=== PATIENT | female | born 1975 | race Caucasian/White ===

== ENCOUNTER → 2016-05-08 | Outpatient (CLI) | payer MEDICAID ==
[2016-05-08 16:59] LABS: Basophils # (A) 0.1 k/uL (0-0.2); Basophils % (A) 1 %; CH 29.1; CHCM 32.5; Eosinophils # (A) 0.2 k/uL (0-0.7); Eosinophils % (A) 3 %; HDW 2.61; HGB 12.6 gm/dL (11.4-16.0); Luc # (Auto) 0.12; Luc % (Auto) 2; Lymphocytes # (A) 2.6 k/uL (1.0-4.8); Lymphocytes % (A) 32 %; MCH 29.1 pg (25.0-35.0); MCHC 32.3 g/dL (31.0-37.0); Mean Platelet Volume 7.5; Monocytes # (A) 0.6 k/uL (0-1.0); Monocytes % (A) 8 %; Neutrophils # (A) 4.5 k/uL (1.3-7.7); Neutrophils % (A) 55 %; RBC 4.33 m/uL (3.80-5.40); WBC 8.2 k/uL (3.8-10.6); WBC (Perox) 8.66
[2016-05-08 17:26] LABS: Anion Gap 10 mmol/L; Blood Urea Nitrogen 11 mg/dL (7-17); Carbon Dioxide 27 mmol/L (22-30); Chloride 105 mmol/L (98-107); Glucose 99 mg/dL (74-99); Non-African American GFR(MDRD) >60 (>60 ml/min/1.73 sqM); Potassium 4.2 mmol/L (3.5-5.1); Sodium 142 mmol/L (137-145)
== END | disposition home or self-care (01) ==
LOC: LABWHC1 16:24 → MERGE 16:24
PROVIDERS: ATTEND Obstetrics & Gynecology
DX: Z01.812 Encounter for preprocedural laboratory examination (principal); N87.9 Dysplasia of cervix uteri, unspecified; N81.4 Uterovaginal prolapse, unspecified
CPT/HCPCS: 36415; 80051; 82565; 82947; 84520; 85025; 86850; 86900; 86901; 87086

== ENCOUNTER 2016-05-14 05:51 | Observation (INO) | payer MEDICAID ==
[2016-05-03 10:32] VITALS: BMI 38.4
[~2016-05-14 05:51] MED LIST: ceFAZolin 2 GM in SODIUM CHLORIDE 0.9% 100 ML IVPB ONE
[2016-05-14] MEDS ORDERED: LACTATED RINGERS 1,000 ML IV SCH (06:05)
[2016-05-14] MEDS ORDERED: SCOPOLAMINE 1.5MG/72HR PATCH TRANSDERM ONE (06:05)
[2016-05-14] MEDS ORDERED: ONDANSETRON 4 MG/2 ML VIAL IVP ONE (06:05)
[2016-05-14] MEDS ORDERED: DEXAMETHASONE SOD PHOSPHATE 10 MG/ML 1 ML VIAL IV ONE (06:05)
[2016-05-14] MEDS ORDERED: MIDAZOLAM 2 MG/2 ML VIAL IV PRN (06:05)
[2016-05-14] MEDS ORDERED: HYDROmorphone 1 MG/ML 1 ML SYRINGE IVP PRN (06:05)
[2016-05-14] MEDS ORDERED: LIDOCAINE 1% 20 ML VIAL (10MG/ML) FOR IV START SQ ONE (06:25)
[2016-05-14] MEDS ORDERED: MIDAZOLAM 2 MG/2 ML VIAL IVP ONE (07:25)
[2016-05-14] MEDS ORDERED: SUCCINYLCHOLINE CHLORIDE 100 MG/5 ML SYR IV ONE (07:30)
[2016-05-14] MEDS ORDERED: ALBUTEROL INHALER 60 PUFF/8 GM INHALER INHALATION ONE (07:30)
[2016-05-14] MEDS ORDERED: LIDOCAINE 1% INJ 10MG/ML (20 ML MDV) ONE (07:30)
[2016-05-14] MEDS ORDERED: fentaNYL (PF) 50 MCG/ML 2 ML AMP ONE (07:30)
[2016-05-14] MEDS ORDERED: PROPOFOL 10 MG/ML 20 ML VIAL IV ONE (07:30)
[2016-05-14] MEDS ORDERED: MIDAZOLAM 2 MG/2 ML VIAL ONE (07:30)
[2016-05-14] MEDS ORDERED: ePHEDrine 50 MG/ML 1 ML AMP ONE (07:30)
[2016-05-14] MEDS ORDERED: VASOPRESSIN 20 UNIT/ML 1 ML VIAL IM ONE (07:52)
[2016-05-14] MEDS ORDERED: LACTATED RINGERS 1,000 ML IV ONE (08:31)
[2016-05-14] MEDS ORDERED: diphenhydrAMINE 50 MG/ML 1 ML VIAL IVP ONE (08:59)
[2016-05-14] MEDS ORDERED: MORPHINE SULFATE 4 MG/ML SYRINGE IVP PRN (09:08)
[2016-05-14] MEDS ORDERED: NALOXONE 0.4 MG/ML 1 ML VIAL IV PRN (09:08)
[2016-05-14] MEDS ORDERED: diphenhydrAMINE 50 MG/ML 1 ML VIAL IVP PRN (09:08)
[2016-05-14] MEDS ORDERED: METOCLOPRAMIDE 5 MG/ML 2 ML VIAL IVP PRN (09:08)
[2016-05-14] MEDS ORDERED: PROMETHAZINE INJ 6.25 MG in SODIUM CHLORIDE 0.9% 50 ML IVPB PRN (09:08)
[2016-05-14] MEDS ORDERED: NALBUPHINE 10 MG/ML AMPUL IV PRN (09:08)
[2016-05-14] MEDS: LACTATED RINGERS 1,000 ML IV SCH ×2 (09:38→16:04)
[2016-05-14] MEDS ORDERED: IBUPROFEN 600 MG TAB PO PRN (09:39)
[2016-05-14] MEDS ORDERED: Acetaminophen-Codeine 300-30mg TAB PO PRN ×2 (09:39)
--- NOTE | 2016-05-14 09:47 | P.OP ---
Date of Procedure: 05/14/16 Preoperative Diagnosis: Third degree cervical uterine prolapse History of DAMON-3 Postoperative Diagnosis: Same Procedure(s) Performed: Total vaginal hysterectomy Anesthesia: HELIO, [place] Surgeon: Gia Lozada Supervisor Lamp Shades #1: Bakari Navarro Estimated Blood Loss (ml): 150 IV fluids (ml): 800 Urine output (ml): 150 Pathology: other (Cervix and uterus) Condition: stable Disposition: PACU Indications for Procedure: Symptomatic third-degree uterine prolapse and history of DAMON 3 of the cervix Operative Findings: Patulous cervix with third degree prolapse. Normal-appearing bilateral fallopian tubes and ovaries. Description of Procedure: After the patient and her family were met in the preoperative holding area, she was taken to the operating room where anesthetic was administered without incident. She was in positioned, prepped and draped in the dorsal lithotomy position. The bladder was drained of approximately 150 mL of clear urine. Weighted speculum was placed in the vagina and the cervix was grasped anteriorly with a single-tooth tenaculum. Dilute vasopressin solution was then infused circumferentially into the cervicovaginal mucosa. Scalpel was utilized to make a circumferential incision in the vaginal mucosa about the cervix. The anterior posterior vaginal Koza were then bluntly dissected away from the underlying cervical tissue. The posterior peritoneum was placed on countertraction and entered sharply. The posterior peritoneum was tagged with a 2-0 Vicryl suture. The short weighted speculum was removed and the long weighted speculum was placed. The bladder was further advanced anteriorly bluntly. The uterosacral ligaments were then clamped cut and suture ligated bilaterally. 0 Vicryl suture was utilized a muscle otherwise noted. The bladder was gently advanced anteriorly and the broad ligaments were clamped cut and suture ligated bilaterally. The uterine vasculature was clamped cut and suture ligated bilaterally. Once complete ligation of the vessels was achieved the fundus of the uterus was grasped with a single-tooth tenaculum and was delivered from the vagina. A window was made in the anterior peritoneum and the pedicles were clamped and cut. The specimen was removed. Sponge stick was placed in the vagina to sweep the bowel out of the surgical field. Each pedicle was doubly suture ligated. An additional [id number] suture was placed on the right pedicle for hemostasis which was then noted. Both fallopian tubes and ovaries were visualized and appeared grossly normal. After both pedicles were observed for hemostasis the long weighted speculum was removed. This short weighted speculum was placed and the peritoneum was closed in a pursestring fashion with 2-0 Vicryl suture. The uterosacral ligaments were reapproximated in the midline for support. The vaginal cuff was then closed in an interrupted fashion. Hemostasis was noted at the vaginal cuff. The vagina was then packed with bacitracin-soaked gauze. Anderson catheter was placed and approximately 20 mL of additional clear urine was obtained. The patient was then awoken from anesthetic and transported to the recovery area in stable condition. All counts reported to me as correct by the operating room staff.
[2016-05-14] MEDS: KETOROLAC 30 MG/ML 1 ML VIAL IVP PRN (10:05)
[2016-05-15] MEDS: KETOROLAC 30 MG/ML 1 ML VIAL IVP PRN ×2 (02:08→11:28)
[2016-05-15] MEDS: LACTATED RINGERS 1,000 ML IV SCH (02:11)
[2016-05-15 08:47] VITALS: BP 124/67; PULSE 94; RESP 16; TEMP 98.8
[2016-05-15 08:55] LABS: Basophils # (A) 0.2 k/uL (0-0.2); Basophils % (A) 2 %; CH 28.9; Eosinophils % (A) 0 %; HCT 35.4 % (34.0-46.0); HDW 2.54; HGB 11.1 gm/dL (11.4-16.0); Luc % (Auto) 1; Lymphocytes # (A) 2.2 k/uL (1.0-4.8); Lymphocytes % (A) 19 %; MCH 28.3 pg (25.0-35.0); MCHC 31.3 g/dL (31.0-37.0); MCV 90.6 fL (80.0-100.0); Mean Platelet Volume 7.4; Monocytes # (A) 0.6 k/uL (0-1.0); Monocytes % (A) 5 %; Neutrophils # (A) 8.5 k/uL (1.3-7.7); Neutrophils % (A) 73 %; RBC 3.91 m/uL (3.80-5.40); RDW 13.3 % (11.5-15.5); WBC 11.6 k/uL (3.8-10.6); WBC (Perox) 11.91
[2016-05-15] MEDS ORDERED: ACETAMINOPHEN TAB 325 MG TAB PO PRN (09:41)
--- NOTE | 2016-05-15 11:54 | P.DS ---
Providers Date of admission: 05/14/16 20:57 Expected date of discharge: 05/15/16 Attending physician: Gia Lozada Primary care physician: Stated None - Discharge Diagnosis(es) (1) Uterine prolapse Current Visit: Yes Status: Acute (2) DAMON III (cervical intraepithelial neoplasia III) Current Visit: Yes Status: Acute Hospital Course: This is a 44 year old woman with symptomatic uterine prolapse, 3rd degree, who desired definative surgical management. She also had a history of DAMON 3 of the cervix that was treated with a cold knife cone biopsy. She was admitted on for total vaginal hysterectomy. She underwent an uncomplicated TVH under spinal plus general anesthetic. See the opertative report for detail. She has some nausea on post op day zero. By post op day 1 she was tolerating a general diet and had minimal pain. Her vaginal packing was removed with no active vaginal bleeding. She was able to void spontaneously with the keita catheter removed. Her vitals signs were stable and her exam within normal limits. She was therefore discharged home on POD 1. Procedures: total vaginal hysterectomy Patient Condition at Discharge: Good Plan - Discharge Summary Discharge Medication List Calcium Carbonate [Tums] 500 mg PO DAILY PRN 05/03/16 [History] Ibuprofen [Motrin] 800 mg PO TID PRN 05/03/16 [History] Acetaminophen-Codeine 300-30mg [Tylenol w/codeine #3] 2 each PO Q6HR PRN #0 tab 05/15/16 [Rx] Ibuprofen [Motrin] 600 mg PO Q6HR PRN #0 tab 05/15/16 [Rx] Follow up Appointment(s)/Referral(s): Gia Lozada MD [STAFF PHYSICIAN] - 2 Weeks Activity/Diet/Wound Care/Special Instructions: Follow up in the office in 2 weeks. Call with fever greater than 100.5 degrees, heavy vaginal bleedin, foul vaginal drainage, severe abdominal pain any other concerning signs or symptoms. Discharge Disposition: HOME SELF-CARE
== END 2016-05-15 14:17 | disposition home or self-care (01) ==
LOC: OR 05:51 → 4FBP 08:32 → OR 20:57 → 4FBP 20:57
PROVIDERS: ADMIT Obstetrics & Gynecology; ATTEND Obstetrics & Gynecology
DX: N81.3 Complete uterovaginal prolapse (principal); D06.9 Carcinoma in situ of cervix, unspecified; A63.0 Anogenital (venereal) warts; N80.0 Endometriosis of uterus
CPT/HCPCS: 81025; 86900; 86901; 85025; 86850; 88309; 58260; G0378 ×2; J2250; J1200; J1100; J2765; J2405; J2001; J3010; J1885 ×2; J0330; J2704; 96361; 96374; 96376

== ENCOUNTER → 2019-07-05 | Outpatient (CLI) | payer MEDICAID ==
--- NOTE | 2019-07-05 15:57 | XR ---
EXAMINATION TYPE: XR chest 2V DATE OF EXAM: 07/05/2019 COMPARISON: NONE HISTORY: Cough TECHNIQUE: Frontal and lateral views of the chest are obtained. FINDINGS: Mild diffuse interstitial prominence. Low lung volumes. There is no focal air space opacit y, pleural effusion, or pneumothorax seen. The cardiac silhouette size is within normal limits. Th e osseous structures are intact. IMPRESSION: Low lung volumes and mild diffuse interstitial prominence. Consider bronchitis or atypic al pneumonia.
== END ==
LOC: RADXRYALE 15:41
PROVIDERS: ATTEND Physician Assistant Medical
DX: R91.8 Other nonspecific abnormal finding of lung field (principal)
CPT/HCPCS: 71046

== ENCOUNTER 2019-07-06 | Inpatient (IN) | payer MEDICAID | END 2019-07-08 13:01 | disposition home or self-care (01) | DRG 196 | PROVIDERS: ADMIT Hospitalist | CPT/HCPCS: 36415; 36600; 71046; 71275; 80048; 80053; 80061; 81001; 82805; 83605; 83735; 83880; 84145; 84484; 85025; 85610; 85730; 86738; 87040; 87449; 87502; 93005; 93306; 94640; 94760; 96361; 96365; 96375; 99285 ==

== ENCOUNTER → 2023-02-06 | Outpatient (CLI) | payer BC ==
--- NOTE | 2023-02-20 09:40 | EM ---
7 DAY EVENT MONITOR REPORT: INDICATION: Palpitations. START DATE: 02/06/2023 END DATE: 02/12/2023 Patient wore the monitor for 5.8 days which is 83 % of total time. FINDINGS: Overall [good] quality study. Patient's baseline rhythm was [normal sinus rhythm]. Baseline heart rate was 90 beats per minute. Maximum heart rate 113, cardiac sinus tachycardia. Minimum heart rate 52 beats a minute correlate with sinus bradycardia There were no observed atrial fibrillation, atrial flutter or sustained ventricular rhythm. There were no observed sinus pauses which were more than 2 second long. There were occasional monomorphic PVCs noticed. PVC but not quantified. Zack Lawler MD, RPVI Cardiovascular Disease MTDD
== END | disposition home or self-care (01) ==
LOC: RADECHMAIN 07:16
PROVIDERS: ATTEND Family Medicine
DX: I10 Essential (primary) hypertension (principal); R00.2 Palpitations; R06.02 Shortness of breath; R00.0 Tachycardia, unspecified
CPT/HCPCS: 93270